=== PATIENT | male | born 1960 | race Two or more races ===

== ENCOUNTER 2017-10-30 12:46 | Inpatient (IN) | payer OTHER ==
[2017-10-30] MEDS ORDERED: ONDANSETRON 4 MG/2 ML VIAL ONE (12:58)
--- NOTE | 2017-10-30 13:02 | PDOC ---
History of Present Illness - General Stated Complaint: SEIZURE Time Seen by Provider: 10/30/17 12:55 History Source: Patient Exam Limitations: No Limitations - History of Present Illness Initial Comments: 10/30/17 13:01 57m with pmh of HTN, CAD s/p SD, history of seizure 5 years ago, never place on antiseizure meds,now brought in by EMS with 3 seizures this morning, once with head trauma ongoing the first one when he fell out of bed, subsequently with post seizure vomitingx2. Patient was postictal but now returning to baseline, reports some generalized body aches and weakness over the last 1-2 days but no other specific complaints, denies any fevers or chills. Past History - Past Medical History Allergies/Adverse Reactions: Allergies Allergy/AdvReac Type Severity Reaction Status Date / Time No Known Allergies Allergy Verified 10/30/17 13:04 Home Medications: Ambulatory Orders Amlodipine Besylate [Norvasc -] 10 mg PO DAILY 10/30/17 Aspirin [ASA -] 81 mg PO DAILY 10/30/17 Atorvastatin Ca [Lipitor] 80 mg PO HS 10/30/17 Clopidogrel Bisulfate [Clopidogrel] 75 mg PO DAILY 10/30/17 Furosemide [Lasix -] 20 mg PO DAILY 10/30/17 Lisinopril 20 mg PO HS 10/30/17 Cardiac Disorders: Yes (mi) Diabetes: Yes HTN: Yes (non complient) - Suicide/Smoking/Psychosocial Hx Smoking History: Never smoked Hx Alcohol Use: No Drug/Substance Use Hx: No Substance Use Type: None Review of Systems - Review of Systems Able to Perform ROS?: No (Postictal) *Physical Exam - Physical Exam General Appearance: Yes: Nourished, Appropriately Dressed, Apparent Distress HEENT: positive: Other (right eye opaque, chronic) Respiratory/Chest: positive: Lungs Clear, Normal Breath Sounds. negative: Chest Tender Cardiovascular: positive: Regular Rhythm, Regular Rate, S1, S2 Gastrointestinal/Abdominal: positive: Normal Bowel Sounds, Flat, Soft. negative : Tender Neurologic: positive: Other (post ictal). negative: Fully Oriented ED Treatment Course - LABORATORY CBC & Chemistry Diagram: 10/30/17 13:25 10/30/17 13:25 - RADIOLOGY Radiology Studies Ordered: Category Date Time Status HEAD CT WITHOUT CONTRAST [CT] Stat CT Scan 10/30/17 12:58 Ordered Medical Decision Making - Medical Decision Making 10/30/17 14:35 EKG: Sinus rhythm with short WI. Possible left atrial enlargement. Possible inferior infarct. Head CT tu r/o bleed. basic labs. 1g of Keppra prophylactically 10/30/17 14:[address]: No definite CT evidence of acute intracranial pathology. Possible small chronic left cerebellar infarct. Mild bilateral periventricular and subcortical white matter hypodensity is noted which may be on the basis of microvascular ischemic gliosis versus nonspecific gliosis. 10/30/17 15:[address] Leblanc. *DC/Admit/Observation/Transfer Diagnosis at time of Disposition: Seizure - Discharge Dispostion Decision to Admit order: Yes - Referrals Referrals: Brown Lee MD [Primary Care Provider] - - Patient Instructions - Post Discharge Activity
[2017-10-30 13:47] LABS: BASO % 0.2 % (0-2.0); HEMOGLOBIN 14.4 GM/dL (11.7-16.9); LYMPH % 4.8 % (8-40); MCH 32.4 pg (25.7-33.7); MCHC 33.4 g/dl (32.0-35.9); MEAN CELL VOLUME 97.1 fl (80-96); MEAN PLT VOLUME 10.3 fl (7.5-11.1); MONO % 5.6 % (3.8-10.2); NEUT % 89.4 % (42.8-82.8); PLATELET COUNT 202 K/MM3 (134-434); RBC 4.43 M/mm3 (4.00-5.60); RDW 14.1 % (11.9-15.9); WHITE BLOOD COUNT 10.4 K/mm3 (4.0-10.0)
[2017-10-30 14:03] LABS: INR 1.04 (0.82-1.09); PROTHROMBIN TIME (PATIENT) 11.7 SEC (9.7-13.0)
[2017-10-30] MEDS ORDERED: levETIRAcetam 500 MG/5 ML INJECTION VIAL IVPB ONE ×2 (14:04→14:08)
[2017-10-30 14:06] LABS: ACTIVATED PTT 26.2 SECONDS (25.2-36.5)
--- NOTE | 2017-10-30 14:17 | PDOC ---
Attending Attestation - Resident Resident Name: Derick Singleton - ED Attending Attestation I have performed the following: I have examined & evaluated the patient, The case was reviewed & discussed with the resident, I agree w/resident's findings & plan - HPI HPI: 10/30/17 14:15 57-year-old male with history of hypertension, CAD, distant history of seizure on 1 or 2 prior occasions not maintained on antiepileptics presents now brought in by EMS with 3 seizures this morning, once with head trauma ongoing the first one when he fell out of bed, subsequently with post seizure vomiting. Patient was postictal but now returning to baseline, reports some generalized body aches and weakness over the last 1-2 days but no other specific complaints, denies any fevers or chills. - Physicial Exam PE: 10/30/17 14:15 Afebrile, vital signs are within normal limits Forehead bruising, head is otherwise atraumatic No C-spine tenderness, full range of motion Right eye opacified, left eye with reactive pupil and normal extraocular movements Heart and lungs are clear, abdomen is benign 5 out of 5 motor strength 4 extremities - Medical Decision Making 10/30/17 14:16 57-year-old male with history of seizures not maintained on antiepileptics presents with 3 seizures over the last 6 hours, one with head injury. Likely recurrence of his underlying seizure disorder, question exacerbating factors such as infection or metabolic disarray. Positive head injury on aspirin and Plavix, rule out TBI. Stat CT Labs, EKG Will load with Keppra Will need admission Heart Score/ECG Review #1 ECG reviewed & interpreted by me at: 13:46 General ECG Interpretation: Sinus Rhythm, Normal Rate (86), Normal Intervals ( qtc 457), No acute ischemic changes (TWI III/AVF)
[2017-10-30 14:21] LABS: ALBUMIN 3.3 g/dl (3.4-5.0); ANION GAP 17 (8-16); BILIRUBIN,TOTAL 0.4 mg/dL (0.2-1.0); BLOOD UREA NITROGEN 11 mg/dL (7-18); CALCIUM 8.6 mg/dL (8.5-10.1); CHLORIDE 102 mmol/L (98-107); CO2 18 mmol/L (21-32); CREATININE 1.2 mg/dL (0.7-1.3); SGPT/ALT 61 U/L (12-78); SODIUM 137 mmol/L (136-145); TOT PROT 6.7 g/dl (6.4-8.2)
[2017-10-30 14:24] LABS: ALK PHOS 104 U/L (45-117)
--- NOTE | 2017-10-30 14:58 | EKG ---
Test Reason : Blood Pressure : / mmHG Vent. Rate : 086 BPM Atrial Rate : 086 BPM P-R Int : 106 ms QRS Dur : 084 ms QT Int : 382 ms P-R-T Axes : 046 018 -25 degrees QTc Int : 457 ms SINUS RHYTHM WITH SHORT OH POSSIBLE LEFT ATRIAL ENLARGEMENT POSSIBLE INFERIOR INFARCT (CITED ON OR BEFORE 29-OCT-2013) ABNORMAL ECG WHEN COMPARED WITH ECG OF 16-MAR-2016 16:29, NO SIGNIFICANT CHANGE WAS FOUND Confirmed by Richard Spencer MD ([id number]) on 10/30/2017 2:57:37 PM Referred By: Confirmed By:Richard Spencer MD
[2017-10-30 15:10] LABS: POTASSIUM 4.6 mmol/L (3.5-5.1); SGOT/AST 32 U/L (15-37)
[2017-10-30 15:12] LABS: GLUCOSE,RANDOM 329 mg/dL (74-106)
[2017-10-30] MEDS ORDERED: SODIUM CHLORIDE 1,000 ML IV STA (15:18)
[2017-10-30] MEDS ORDERED: INSULIN REGULAR HUMAN 100 UNITS/ML *VIAL SQ ONE (16:00)
[2017-10-30] MEDS ORDERED: INSULIN REGULAR HUMAN 100 UNITS/ML *VIAL ONE (16:05)
[2017-10-30 19:01] VITALS: BMI 26.9
--- NOTE | 2017-10-30 19:40 | HP ---
Admitting History and Physical - Past Medical History Cardiovascular: Yes: HTN - Smoking History Smoking history: Never smoked Have you smoked in the past 12 months: No - Alcohol/Substance Use Hx Alcohol Use: No Home Medications - Allergies Allergies/Adverse Reactions: Allergies Allergy/AdvReac Type Severity Reaction Status Date / Time No Known Allergies Allergy Verified 10/30/17 13:04 - Home Medications Home Medications: Ambulatory Orders Amlodipine Besylate [Norvasc -] 10 mg PO DAILY 10/30/17 Aspirin [ASA -] 81 mg PO DAILY 10/30/17 Atorvastatin Ca [Lipitor] 80 mg PO HS 10/30/17 Clopidogrel Bisulfate [Clopidogrel] 75 mg PO DAILY 10/30/17 Furosemide [Lasix -] 20 mg PO DAILY 10/30/17 Lisinopril 20 mg PO HS 10/30/17 Physical Examination Vital Signs: Vital Signs Temperature 98.3 F 10/30/17 18:49 Pulse Rate 84 10/30/17 18:49 Respiratory Rate 20 10/30/17 18:49 Blood Pressure 138/85 10/30/17 18:49 O2 Sat by Pulse Oximetry (%) 95 10/30/17 18:49 Labs: CBC, BMP 10/30/17 13:25 10/30/17 13:25
[2017-10-31] MEDS ORDERED: SODIUM CHLORIDE 0.45% 1,000 ML IV SCH (01:15)
[2017-10-31] MEDS: INSULIN (NOVOLOG) ASPART 100 UNITS/ML 10ML VIAL SQ SCH ×4 (06:10→22:10)
[2017-10-31 08:10] LABS: BASO % 0.5 % (0-2.0); EOS % 2.2 % (0-4.5); HEMATOCRIT 38.6 % (35.4-49); HEMOGLOBIN 13.1 GM/dL (11.7-16.9); LYMPH % 26.2 % (8-40); MCH 32.7 pg (25.7-33.7); MEAN CELL VOLUME 96.2 fl (80-96); MEAN PLT VOLUME 10.3 fl (7.5-11.1); MONO % 9.7 % (3.8-10.2); NEUT % 61.4 % (42.8-82.8); PLATELET COUNT 164 K/MM3 (134-434); RBC 4.01 M/mm3 (4.00-5.60); RDW 14.1 % (11.9-15.9); WHITE BLOOD COUNT 5.7 K/mm3 (4.0-10.0)
[2017-10-31 08:20] LABS: ALK PHOS 75 U/L (45-117); ANION GAP 10 (8-16); BILIRUBIN,TOTAL 0.7 mg/dL (0.2-1.0); BLOOD UREA NITROGEN 11 mg/dL (7-18); CALCIUM 8.4 mg/dL (8.5-10.1); CHLORIDE 105 mmol/L (98-107); CO2 25 mmol/L (21-32); GLUCOSE,RANDOM 169 mg/dL (74-106); POTASSIUM 4.2 mmol/L (3.5-5.1); SGOT/AST 26 U/L (15-37); SGPT/ALT 49 U/L (12-78); SODIUM 140 mmol/L (136-145); TOT PROT 6.1 g/dl (6.4-8.2)
[2017-10-31] MEDS: FUROSEMIDE 20 MG TABLET (FP) PO SCH (10:47)
[2017-10-31] MEDS: CLOPIDOGREL BISULFATE 75 MG TABLET (FP) PO SCH (10:47)
[2017-10-31] MEDS: amLODIPine BESYLATE 10 MG TABLET (FP) PO SCH (10:47)
[2017-10-31] MEDS: ASPIRIN 81 MG CHEWABLE TABLETS PO SCH (10:47)
[2017-10-31] MEDS: levETIRAcetam 500 MG TABLET (FP) PO SCH ×2 (10:47→22:07)
--- NOTE | 2017-10-31 14:22 | ECHO ---
Name: DEBBIE LEIVA Exam:Adult Echocardiogram Study Date: 10/31/2017 08:26 AM Age: 57 yrs Reason For Study: HTN Height: 69 in Weight: 182 lb BSA: 2.0 m2 MMode/2D Measurements & Calculations IVSd: 0.82 cm Ao root diam: 3.3 cm LVIDd: 5.6 cm LA dimension: 3.7 cm LVIDs: 4.4 cm LVPWd: 0.84 cm EDV(Teich): 155.1 ml TAPSE: 0.72 cm ESV(Teich): 87.1 ml RV S Asaf: 10.8 cm/sec Doppler Measurements & Calculations MV E max asaf: 79.0 cm/sec MR max asaf: 367.6 cm/sec MV A max asaf: 17.3 cm/sec MR max P.3 mmHg MV E/A: 4.6 MV dec time: 0.11 sec TR max asaf: 221.7 cm/sec PI end-d asaf: 143.9 cm/sec TR max P.8 mmHg Med Peak E' Asaf: 7.9 cm/sec Med E/e': 10.0 Lat Peak E' Asaf: 4.8 cm/sec Lat E/e': 16.6 Procedure A two-dimensional transthoracic echocardiogram with color flow and Doppler was performed. Left Ventricle The left ventricle is grossly normal size. Left ventricular systolic function is moderately reduced. There is moderate global hypokinesis of the left ventricle. Right Ventricle The right ventricle is not well visualized. Atria Normal left and right atrial size and function. The atrial septum is aneurysmal. Mitral Valve There is mild mitral valve thickening. There is no mitral valve stenosis. There is moderate mitral regurgitation. Tricuspid Valve There is mild tricuspid valve thickening. There is no tricuspid stenosis. There is trace tricuspid regurgitation. Right ventricular systolic pressure is normal. Aortic Valve The aortic valve is not well visualized. No hemodynamically significant valvular aortic stenosis. Tra ce to mild aortic regurgitation. Pulmonic Valve The pulmonic valve is not well visualized. There is no pulmonic valvular stenosis. Trace pulmonic william vular regurgitation. Great Vessels The aortic root is normal size. Pericardium/Pleura There is no pericardial effusion. Interpretation Summary There is trace tricuspid regurgitation. Right ventricular systolic pressure is normal. Normal left and right atrial size and function. The atrial septum is aneurysmal. There is moderate mitral regurgitation. Trace to mild aortic regurgitation. The left ventricle is grossly normal size. Left ventricular systolic function is moderately reduced. There is moderate global hypokinesis of the left ventricle. MD Devyn Rivas 10/31/2017 02:21 PM
--- NOTE | 2017-10-31 15:37 | PN ---
Physical Exam: SUBJECTIVE: Patient seen and examined. divehi speaking only, nurse provided translation. pt denies hx of seizure disorder. denies ever being told he had a stroke in the past. admits to poor medication compliance due to insurance coverage. aware that he is diabetic OBJECTIVE: Vital Signs Period Temp Pulse Resp BP Sys/Yeager Pulse Ox Last 24 Hr 97.7 F-98.7 F 70-86 18-20 123-153/77-85 95-95 GENERAL: The patient is awake, alert, in no acute distress. EYES: right eye opacified due to childhood injury, extraocular movements intact , sclera anicteric, conjunctiva clear. No ptosis. ENT: moist mucous membranes. LUNGS: Breath sounds equal, clear to auscultation bilaterally, no wheezes, no crackles, no accessory muscle use. HEART: Regular rate and rhythm, S1, S2 without murmur, rub or gallop. ABDOMEN: Soft, nontender, nondistended, normoactive bowel sounds, no guarding, EXTREMITIES: 2+ dp and radial pulses, warm, well-perfused, no edema. Laboratory Results - last 24 hr 10/30/17 10/30/17 10/31/17 13:25 15:55 00:45 WBC RBC Hgb Hct MCV MCH MCHC RDW Plt Count MPV Absolute Neuts (auto) Neutrophils % Lymphocytes % Monocytes % Eosinophils % Basophils % Nucleated RBC % Sodium Potassium Chloride Carbon Dioxide Anion Gap BUN Creatinine Creat Clearance w eGFR POC Glucometer Random Glucose Hemoglobin A1c % Calcium Total Bilirubin AST ALT Alkaline Phosphatase Creatine Kinase 599 H 694 H Creatine Kinase Index Cancelled 0.3 0.2 CK-MB (CK-2) Cancelled 1.85 1.66 Troponin I 0.07 H D Total Protein Albumin TSH 10/31/17 10/31/17 10/31/17 06:09 07:00 07:00 WBC 5.7 RBC 4.01 Hgb 13.1 Hct 38.6 MCV 96.2 H MCH 32.7 MCHC 34.0 RDW 14.1 Plt Count 164 MPV 10.3 Absolute Neuts (auto) 3.5 Neutrophils % 61.4 D Lymphocytes % 26.2 D Monocytes % 9.7 Eosinophils % 2.2 D Basophils % 0.5 Nucleated RBC % 0 Sodium 140 Potassium 4.2 Chloride 105 Carbon Dioxide 25 D Anion Gap 10 BUN 11 Creatinine 1.0 Creat Clearance w eGFR > 60 POC Glucometer 163 Random Glucose 169 H D Hemoglobin A1c % Calcium 8.4 L Total Bilirubin 0.7 AST 26 ALT 49 Alkaline Phosphatase 75 D Creatine Kinase Creatine Kinase Index CK-MB (CK-2) Troponin I Total Protein 6.1 L Albumin 3.0 L TSH 0.73 10/31/17 10/31/17 07:00 13:12 WBC RBC Hgb Hct MCV MCH MCHC RDW Plt Count MPV Absolute Neuts (auto) Neutrophils % Lymphocytes % Monocytes % Eosinophils % Basophils % Nucleated RBC % Sodium Potassium Chloride Carbon Dioxide Anion Gap BUN Creatinine Creat Clearance w eGFR POC Glucometer 271 Random Glucose Hemoglobin A1c % 11.5 H D Calcium Total Bilirubin AST ALT Alkaline Phosphatase Creatine Kinase Creatine Kinase Index CK-MB (CK-2) Troponin I Total Protein Albumin TSH Active Medications Generic Name Dose Route Start Last Admin Trade Name Freq PRN Reason Stop Dose Admin Amlodipine Besylate 10 mg 10/31/17 10:00 10/31/17 10:47 Norvasc - PO 10 mg DAILY [facility] Administration Aspirin 81 mg 10/31/17 10:00 10/31/17 10:47 Asa - PO 81 mg DAILY [facility] Administration Atorvastatin Calcium 80 mg 10/31/17 22:00 Lipitor - PO HS [facility] Clopidogrel Bisulfate 75 mg 10/31/17 10:00 10/31/17 10:47 Plavix - PO 75 mg DAILY [facility] Administration Furosemide 20 mg 10/31/17 10:00 10/31/17 10:47 Lasix - PO 20 mg DAILY [facility] Administration Sodium Chloride 1,000 mls @ 75 mls/hr 10/31/17 01:15 10/31/17 02:15 1/2 Normal Saline IV 75 mls/hr ASDIR [facility]FFERSON Administration Insulin Aspart 0 units 10/31/17 07:00 10/31/17 13:14 Novolog Vial SQ 6 units ACHS [facility] Administration Protocol Levetiracetam 500 mg 10/31/17 10:00 10/31/17 10:47 Keppra - PO 500 mg BID [facility] Administration Lisinopril 20 mg 10/31/17 22:00 Prinivil PO HS [facility] ASSESSMENT/PLAN: 57 yr old man with uncontrolled DM, HTN, hx of CVA on CT imaging presents with new onset seizures at home admitted for further work-up. #Seizures - new onset, w.u pending - continue keppraa 500mg po bid - neuro consulted dr. Burkett - pt denies toxic habits, otc herbal medications, or any illness prior to seizure episodes. - head ct with possible small chronic left cerebellar infarct #uncontrolled DM - NISS, BGM ACHS while inpatient - will need medications added for better glucose control at time of dc - provided lifestyle modification counseling #HTN - lasix 20mg po daily - norvasc 10mg po daily - lisinopril 20mg op hs #continue home medication: plavix 75mg and ASA 81mg po daily, unclear why pt is on both, likely has CAD but recommend pt will need to discuss with PCP about continuing medications #Hyperlipidemia - continue home lipitor 80mg po hs #Diet; low sodium/dm diet #DVT: lovenox 40mg subq daily, encourage ambulation Visit type - Emergency Visit Emergency Visit: No - New Patient This patient is new to me today: Yes Date on this admission: 10/31/17 - Critical Care Critical Care patient: No - Discharge Referral Referred to [facility] No
--- NOTE | 2017-10-31 18:01 | PN ---
Teaching Attending Note Name of Resident: Aspen Bell ATTENDING PHYSICIAN STATEMENT I saw and evaluated the patient. I reviewed the resident's note and discussed the case with the resident. I agree with the resident's findings and plan as documented. SUBJECTIVE: Patient has no complaints. OBJECTIVE: Vital Signs Period Temp Pulse Resp BP Sys/Yeager Pulse Ox Last 24 Hr 97.7 F-98.7 F 70-86 18-20 123-153/77-85 95-95 HEART: S1S2, RRR LUNGS: Clear ABDOMEN: Soft, non-tender, non-distended, normal BS EXTREMITIES: No edema Laboratory Results - last 24 hr 10/31/17 10/31/17 10/31/17 00:45 06:09 07:00 WBC 5.7 RBC 4.01 Hgb 13.1 Hct 38.6 MCV 96.2 H MCH 32.7 MCHC 34.0 RDW 14.1 Plt Count 164 MPV 10.3 Absolute Neuts (auto) 3.5 Neutrophils % 61.4 D Lymphocytes % 26.2 D Monocytes % 9.7 Eosinophils % 2.2 D Basophils % 0.5 Nucleated RBC % 0 Sodium Potassium Chloride Carbon Dioxide Anion Gap BUN Creatinine Creat Clearance w eGFR POC Glucometer 163 Random Glucose Hemoglobin A1c % Calcium Total Bilirubin AST ALT Alkaline Phosphatase Creatine Kinase 694 H Creatine Kinase Index 0.2 CK-MB (CK-2) 1.66 Troponin I 0.07 H D Total Protein Albumin TSH 10/31/17 10/31/17 10/31/17 07:00 07:00 13:12 WBC RBC Hgb Hct MCV MCH MCHC RDW Plt Count MPV Absolute Neuts (auto) Neutrophils % Lymphocytes % Monocytes % Eosinophils % Basophils % Nucleated RBC % Sodium 140 Potassium 4.2 Chloride 105 Carbon Dioxide 25 D Anion Gap 10 BUN 11 Creatinine 1.0 Creat Clearance w eGFR > 60 POC Glucometer 271 Random Glucose 169 H D Hemoglobin A1c % 11.5 H D Calcium 8.4 L Total Bilirubin 0.7 AST 26 ALT 49 Alkaline Phosphatase 75 D Creatine Kinase Creatine Kinase Index CK-MB (CK-2) Troponin I Total Protein 6.1 L Albumin 3.0 L TSH 0.73 10/31/17 15:55 WBC RBC Hgb Hct MCV MCH MCHC RDW Plt Count MPV Absolute Neuts (auto) Neutrophils % Lymphocytes % Monocytes % Eosinophils % Basophils % Nucleated RBC % Sodium Potassium Chloride Carbon Dioxide Anion Gap BUN Creatinine Creat Clearance w eGFR POC Glucometer 138 Random Glucose Hemoglobin A1c % Calcium Total Bilirubin AST ALT Alkaline Phosphatase Creatine Kinase Creatine Kinase Index CK-MB (CK-2) Troponin I Total Protein Albumin TSH Current Medications Generic Name Dose Route Start Last Admin Trade Name Glen PRN Reason Stop Dose Admin Amlodipine Besylate 10 mg 10/31/17 10:00 10/31/17 10:47 Norvasc - PO 10 mg DAILY [facility] Administration Aspirin 81 mg 10/31/17 10:00 10/31/17 10:47 Asa - PO 81 mg DAILY [facility] Administration Atorvastatin Calcium 80 mg 10/31/17 22:00 Lipitor - PO HS [facility] Clopidogrel Bisulfate 75 mg 10/31/17 10:00 10/31/17 10:47 Plavix - PO 75 mg DAILY [facility] Administration Furosemide 20 mg 10/31/17 10:00 10/31/17 10:47 Lasix - PO 20 mg DAILY [facility] Administration Sodium Chloride 1,000 mls @ 75 mls/hr 10/31/17 01:15 10/31/17 02:15 1/2 Normal Saline IV 75 mls/hr ASDIR JEFFERSON Administration Insulin Aspart 0 units 10/31/17 07:00 10/31/17 16:29 Novolog Vial SQ Not Given ACHS [facility] Protocol Levetiracetam 500 mg 10/31/17 10:00 10/31/17 10:47 Keppra - PO 500 mg BID [facility] Administration Lisinopril 20 mg 10/31/17 22:00 Prinivil PO HS [facility] ASSESSMENT AND PLAN: 1. Seizure - Continue Keppra - Neurology eval 2. CAD, history of MS - Continue aspirin, Plavix, Lipitor 3. HTN - Continue Lisinopril, Norvasc, Lasix 4. Possible old left cerebellar infarct - Continue aspirin, Plavix, Lipitor 5. Type 2 DM, uncontrolled - HgbA1c 11.5 - Continue Novolog sliding scale - Diabetic education
--- NOTE | 2017-10-31 19:24 | CONSULT ---
Consult - text type - Consultation Consultation Note: NEUROLOGY CONSULTATION is greatly appreciated: This 57 yo RH single man lives with his brother. 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 PMH of HTN, DM, Chol but apparently not on meds. 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 H/O episodic headaches in the past. Currently quiescent. Denies prior seizures but admitted after 2 witnessed generalized seizures with LOC and shaking of all 4's on the day of admission and the day prior. No incontinence or tongue biting. In ER Glu> 360 mg %. Moderate increase in CK. WBC=10.4K CT of head (reviewed): mild atrophy. 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 DEANA: No bruits. Cor reg. enucleation OD. normal tongue. NEURO: Awake, alert. MS/speech: Normal CN II-XII: normal No drift or tremor. Normal strength. Absent AJ's. No FTN dystaxia Decreased vibration in toes. Romberg - Gait: Normal IMP: Non-focal exam. S/P head trauma and CVA (s). New onset seizure. SUGGEST: Continue levetiracetam 500 mg PO BID Repeat CK and WBC. Cont. Current Rx including plavix. Thank you very much, Andre Burkett MD
[2017-10-31 20:21] LABS: URINE APPEARANCE CLEAR; URINE BILIRUBIN NEGATIVE (<2.0 mg/dL); URINE COLOR LTYELLOW; URINE GLUCOSE (UA) 1+ (NEGATIVE); URINE KETONE NEGATIVE (NEGATIVE); URINE NITRITE NEGATIVE (NEGATIVE); URINE PROTEIN NEGATIVE (NEGATIVE); URINE UROBILINOGEN NEGATIVE mg/dL (0.2-1.0)
[2017-10-31 20:26] LABS: URINE LEUK ESTERASE 3+ (NEGATIVE)
[2017-10-31 20:34] LABS: EPI CELLS RARE /HPF (FEW); URINE MUCUS RARE
[2017-10-31] MEDS ORDERED: LISINOPRIL 20 MG TABLET (FP) PO SCH (22:00)
[2017-10-31] MEDS ORDERED: ATORVASTATIN CA 80 MG TABLET (FP) PO SCH (22:00)
[2017-11-01] MEDS: INSULIN (NOVOLOG) ASPART 100 UNITS/ML 10ML VIAL SQ SCH ×3 (06:03→16:19)
[2017-11-01 09:04] LABS: BASO % 0.9 % (0-2.0); EOS % 3.7 % (0-4.5); HEMATOCRIT 40.3 % (35.4-49); HEMOGLOBIN 13.7 GM/dL (11.7-16.9); LYMPH % 21.2 % (8-40); MCH 32.6 pg (25.7-33.7); MEAN CELL VOLUME 95.7 fl (80-96); MEAN PLT VOLUME 10.4 fl (7.5-11.1); MONO % 7.5 % (3.8-10.2); NEUT % 66.7 % (42.8-82.8); PLATELET COUNT 178 K/MM3 (134-434); RBC 4.21 M/mm3 (4.00-5.60); RDW 13.7 % (11.9-15.9); WHITE BLOOD COUNT 5.4 K/mm3 (4.0-10.0)
[2017-11-01] MEDS ORDERED: INSULIN (NOVOLOG) ASPART 100 UNITS/ML 10ML VIAL ONE (09:59)
[2017-11-01] MEDS ORDERED: ENOXAPARIN NA (PORCINE) 40 MG/0.4 ML DISP.SYRIN SQ SCH (10:00)
[2017-11-01] MEDS: amLODIPine BESYLATE 10 MG TABLET (FP) PO SCH (10:04)
[2017-11-01] MEDS: FUROSEMIDE 20 MG TABLET (FP) PO SCH (10:04)
[2017-11-01] MEDS: levETIRAcetam 500 MG TABLET (FP) PO SCH (10:04)
[2017-11-01] MEDS: ASPIRIN 81 MG CHEWABLE TABLETS PO SCH (10:04)
[2017-11-01] MEDS: CLOPIDOGREL BISULFATE 75 MG TABLET (FP) PO SCH (10:05)
--- NOTE | 2017-11-01 16:02 | PN ---
Teaching Attending Note Name of Resident: Aspen Bell ATTENDING PHYSICIAN STATEMENT I saw and evaluated the patient. I reviewed the resident's note and discussed the case with the resident. I agree with the resident's findings and plan as documented. SUBJECTIVE: Patient has no complaints. No further seizures. OBJECTIVE: Vital Signs Period Temp Pulse Resp BP Sys/Yeager Pulse Ox Last 24 Hr 98.0 F-98.7 F 66-88 20-20 126-143/60-87 94-94 HEART: S1S2, RRR LUNGS: Clear ABDOMEN: Soft, non-tender, non-distended, normal BS EXTREMITIES: No edema Laboratory Results - last 24 hr 10/31/17 10/31/17 10/31/17 13:16 15:55 22:09 WBC RBC Hgb Hct MCV MCH MCHC RDW Plt Count MPV Absolute Neuts (auto) Neutrophils % Lymphocytes % Monocytes % Eosinophils % Basophils % Nucleated RBC % POC Glucometer 138 218 Creatine Kinase Creatine Kinase Index CK-MB (CK-2) Troponin I Urine Color Ltyellow Urine Appearance Clear Urine pH 5.0 D Ur Specific [place] 1.013 Urine Protein Negative Urine Glucose (UA) 1+ H Urine Ketones Negative Urine Blood Negative Urine Nitrite Negative Urine Bilirubin Negative Urine Urobilinogen Negative Ur Leukocyte Esterase 3+ H Urine WBC (Auto) 9 Urine RBC (Auto) 3 Ur Epithelial Cells Rare Urine Mucus Rare 11/01/17 11/01/17 11/01/17 06:00 09:00 09:00 WBC 5.4 RBC 4.21 Hgb 13.7 Hct 40.3 MCV 95.7 MCH 32.6 MCHC 34.0 RDW 13.7 Plt Count 178 MPV 10.4 Absolute Neuts (auto) 3.6 Neutrophils % 66.7 Lymphocytes % 21.2 Monocytes % 7.5 Eosinophils % 3.7 Basophils % 0.9 Nucleated RBC % 0 POC Glucometer 173 Creatine Kinase 354 H Creatine Kinase Index 0.3 CK-MB (CK-2) 1.23 Troponin I 0.02 D Urine Color Urine Appearance Urine pH Ur Specific [place] Urine Protein Urine Glucose (UA) Urine Ketones Urine Blood Urine Nitrite Urine Bilirubin Urine Urobilinogen Ur Leukocyte Esterase Urine WBC (Auto) Urine RBC (Auto) Ur Epithelial Cells Urine Mucus 11/01/17 10:07 WBC RBC Hgb Hct MCV MCH MCHC RDW Plt Count MPV Absolute Neuts (auto) Neutrophils % Lymphocytes % Monocytes % Eosinophils % Basophils % Nucleated RBC % POC Glucometer 235 Creatine Kinase Creatine Kinase Index CK-MB (CK-2) Troponin I Urine Color Urine Appearance Urine pH Ur Specific [place] Urine Protein Urine Glucose (UA) Urine Ketones Urine Blood Urine Nitrite Urine Bilirubin Urine Urobilinogen Ur Leukocyte Esterase Urine WBC (Auto) Urine RBC (Auto) Ur Epithelial Cells Urine Mucus Current Medications Generic Name Dose Route Start Last Admin Trade Name Glen PRN Reason Stop Dose Admin Amlodipine Besylate 10 mg 10/31/17 10:00 11/01/17 10:04 Norvasc - PO 10 mg DAILY [facility] Administration Aspirin 81 mg 10/31/17 10:00 11/01/17 10:04 Asa - PO 81 mg DAILY JE[facility] Administration Atorvastatin Calcium 80 mg 10/31/17 22:00 10/31/17 22:07 Lipitor - PO 80 mg HS [facility] Administration Clopidogrel Bisulfate 75 mg 10/31/17 10:00 11/01/17 10:05 Plavix - PO 75 mg DAILY JE[facility] Administration Enoxaparin Sodium 40 mg 11/01/17 10:00 11/01/17 10:04 Lovenox - SQ 40 mg DAILY JE[facility] Administration Furosemide 20 mg 10/31/17 10:00 11/01/17 10:04 Lasix - PO 20 mg DAILY [facility] Administration Insulin Aspart 0 units 10/31/17 07:00 11/01/17 10:08 Novolog Vial SQ 4 units ACHS [facility]ERSON Administration Protocol Levetiracetam 500 mg 10/31/17 10:00 11/01/17 10:04 Keppra - PO 500 mg BID [facility] Administration Lisinopril 20 mg 10/31/17 22:00 10/31/17 22:07 Prinivil PO 20 mg HS JEFF[facility] Administration ASSESSMENT AND PLAN: 1. Seizure - Neurology consult appreciated - Discharge on Keppra 2. CAD, history of DC - Continue aspirin, Plavix, Lipitor 3. HTN - Continue Lisinopril, Norvasc, Lasix 4. Possible old left cerebellar infarct - Continue aspirin, Plavix, Lipitor 5. Type 2 DM, uncontrolled - HgbA1c 11.5 - Discharge on metformin - patient unlikely to be compliant with insulin
[2017-11-01 19:27] VITALS: BP 148/90; PULSE 78; TEMP 98.4
== END 2017-11-01 20:00 | disposition home or self-care (01) | DRG 53 ==
LOC: JER 12:46 → JERBED 15:57 → J6S 18:24
PROVIDERS: ADMIT Internal Medicine; ATTEND Internal Medicine
DX: R56.9 Unspecified convulsions (principal); I25.10 Atherosclerotic heart disease of native coronary artery without angina pectoris; E11.65 Type 2 diabetes mellitus with hyperglycemia; I10 Essential (primary) hypertension; E78.5 Hyperlipidemia, unspecified; I25.2 Old myocardial infarction
CPT/HCPCS: 36415; 70450-TC; 80053; 81003; 81015; 82550; 82553; 82962; 83036; 84443; 84484; 85025; 85610; 85730; 93005; 93010; 93306-TC; 93880-TC; 99285-25; J7030

== ENCOUNTER 2019-05-08 07:04 | Emergency (ER) | payer OTHER ==
[2019-05-08 07:32] VITALS: BMI 25.5
--- NOTE | 2019-05-08 08:03 | PDOC ---
History of Present Illness - General Chief Complaint: Lightheaded Stated Complaint: DIZZINESS History Source: Patient Exam Limitations: No Limitations - History of Present Illness Initial Comments: 05/08/19 08:10 58yM w PMHx seizure, CAD w hx IA, HTN, CVA (L cerebellar infarct, no chronic neuro deficits), T2DM presenting w weakness. Woke up at 5am this morning feeling dizzy trying to stand up from sitting position in bed that self- resolved after 4 minutes. Currently feels back at baseline. Denies LOC, head trauma. Last seizure couple of years ago, on keppra, med compliant. Denies fever , confusion, headache, nausea/vomiting, chest pain/SOB, urinary/bowel mvmt changes. Past History - Past Medical History Allergies/Adverse Reactions: Allergies Allergy/AdvReac Type Severity Reaction Status Date / Time No Known Allergies Allergy Verified 05/08/19 07:20 Home Medications: Ambulatory Orders Amlodipine Besylate [Norvasc -] 10 mg PO DAILY 10/30/17 Aspirin [ASA -] 81 mg PO DAILY 10/30/17 Atorvastatin Ca [Lipitor] 80 mg PO HS 10/30/17 Clopidogrel Bisulfate [Clopidogrel] 75 mg PO DAILY 10/30/17 Lisinopril 20 mg PO HS 10/30/17 levETIRAcetam [Keppra -] 500 mg PO BID #60 tablet 11/01/17 metFORMIN HCL [Metformin HCl ER] 500 mg PO DAILY #30 tab.er.24 11/01/17 Anemia: No Asthma: No Cancer: No Cardiac Disorders: Yes (mi) CVA: No COPD: No CHF: No Dementia: No Diabetes: Yes GI Disorders: No Disorders: No HTN: Yes (non complient) Hypercholesterolemia: No Liver Disease: No Seizures: Yes Thyroid Disease: No - Surgical History Abdominal Surgery: No Appendectomy: No Cardiac Surgery: No Cholecystectomy: No Lung Surgery: No Neurologic Surgery: No Orthopedic Surgery: No - Psycho Social/Smoking Cessation Hx Smoking History: Unknown if ever smoked Have you smoked in the past 12 months: No Hx Alcohol Use: No Drug/Substance Use Hx: No Substance Use Type: None Hx Substance Use Treatment: No Review of Systems - Review of Systems Constitutional: No: Chills, Fever HEENTM: No: Eye Pain, Nose Pain, Throat Pain Respiratory: No: Cough, Shortness of Breath Cardiac (ROS): No: Chest Pain, Palpitations ABD/GI: No: Abdominal Distended, Constipated, Diarrhea, Nausea, Vomiting : No: Burning, Dysuria Musculoskeletal: No: Back Pain, Joint Pain Integumentary: No: Bruising, Flushing Neurological: Yes: Weakness. No: Headache, Numbness Psychiatric: No: Anxiety, Depression Endocrine: No: Excessive Sweating, Intolerance to Cold, Intolerance to Heat Hematologic/Lymphatic: No: Anemia, Blood Clots *Physical Exam - Vital Signs Last Vital Signs Temp Pulse Resp BP Pulse Ox 97.7 F 88 18 164/91 99 05/08/19 07:20 05/08/19 07:20 05/08/19 07:20 05/08/19 07:20 05/08/19 07:20 - Physical Exam General Appearance: Yes: Nourished, Appropriately Dressed. No: Apparent Distress HEENT: positive: EOMI, ANDREA (R eye pupil not visualized), Normal Voice, Hearing Grossly Normal. negative: Scleral Icterus (R), Scleral Icterus (L), Rhinorrhea Respiratory/Chest: positive: Lungs Clear, Normal Breath Sounds. negative: Chest Tender, Respiratory Distress Cardiovascular: positive: Regular Rhythm, Regular Rate, S1, S2. 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 negative: Sensory Deficit, Confused, Disoriented ED Treatment Course - LABORATORY CBC & Chemistry Diagram: 05/08/19 09:00 05/08/19 08:30 Medical Decision Making - Medical Decision Making 05/08/19 08:32 EKG NSR, HR 77, QTc 411, TWI III, no other ST changes head CT no acute bleed/infarct/mass. L maxillary sinus disease 153/83 supine 144/93 standing --- 58yM w PMHx seizure, CAD w hx IA, HTN, CVA (L cerebellar infarct, no chronic neuro deficits), T2DM presenting w 4min generalized weakness this morning d/t dehydration vs posterior TIA Low concern for IA (no chest pain/SOB) vs seizure vs hypoglycemia (normal BG) vs orthostatic hypotension (<20 SBP drop) Given 1L NS Consulted Dr Burkett neuro - does not believe MRI brain would change medical management, consider outpatient carotid duplex, lipid studies, continue aspirin , BP control, statin DC w neuro referral Discharge - Discharge Information Problems reviewed: Yes Clinical Impression/Diagnosis: Dehydration Condition: Improved Disposition: HOME - Admission No - Follow up/Referral Referrals: Yanira Fuller [Primary Care Provider] - Joo Nichole MD [Staff Physician] - - Patient Discharge Instructions Patient Printed Discharge Instructions: DI for Dehydration -- Adult Additional Instructions: Drink lots of water. Follow up with the referred neurologist and your primary care doctor Come back to the ED if you have chest pain, trouble breathing, or lose consciousness. --- Beber roldan agua. Jim un seguimiento con el neurlogo referido y lizama mdico de atencin primaria. Regrese al servicio de urgencias si tiene dolor en el pecho, dificultad para respirar o prdida del conocimiento. Print Language: VIETNAMESE - Post Discharge Activity
[2019-05-08 09:20] LABS: BASO % 0.9 % (0-2.0); EOS % 2.4 % (0-4.5); HEMATOCRIT 41.5 % (35.4-49); HEMOGLOBIN 14.4 GM/dL (11.7-16.9); LYMPH % 23.8 % (8-40); MCH 30.9 pg (25.7-33.7); MCHC 34.7 g/dl (32.0-35.9); MEAN CELL VOLUME 88.9 fl (80-96); MEAN PLT VOLUME 8.8 fl (7.5-11.1); MONO % 7.3 % (3.8-10.2); NEUT % 65.6 % (42.8-82.8); PLATELET COUNT 229 K/MM3 (134-434); RBC 4.67 M/mm3 (4.00-5.60); RDW 12.9 % (11.9-15.9); WHITE BLOOD COUNT 5.1 K/mm3 (4.0-10.0)
[2019-05-08] MEDS ORDERED: SODIUM CHLORIDE 0.9% 500 ML INFUS.BAG IV ONE (09:40)
[2019-05-08 09:45] LABS: ALBUMIN 4.4 g/dl (3.4-5.0); BILIRUBIN,TOTAL 0.5 mg/dL (0.2-1); BLOOD UREA NITROGEN 14.7 mg/dL (7-18); CALCIUM 9.6 mg/dL (8.5-10.1); POTASSIUM 4.4 mmol/L (3.5-5.1); TOT PROT 8.6 g/dl (6.4-8.2)
[2019-05-08 14:24] VITALS: BP 158/76; PULSE 77; TEMP 98.1
--- NOTE | 2019-05-08 14:39 | EKG ---
Test Reason : Blood Pressure : / mmHG Vent. Rate : 077 BPM Atrial Rate : 077 BPM P-R Int : 110 ms QRS Dur : 082 ms QT Int : 364 ms P-R-T Axes : 049 014 010 degrees QTc Int : 411 ms SINUS RHYTHM WITH SHORT FL OTHERWISE NORMAL ECG WHEN COMPARED WITH ECG OF 30-OCT-2017 13:46, NO SIGNIFICANT CHANGE WAS FOUND Confirmed by ALLI SMITH MD ([id number]) on 05/08/2019 2:39:34 PM Referred By: Confirmed By:ALLI SMITH MD
--- NOTE | 2019-05-08 16:54 | PDOC ---
Documentation entered by Milton Edward SCRIBE, acting as scribe for Sheryl Wallace MD. Sheryl Wallace MD: This documentation has been prepared by the Wagner ledesma Nirvannie, SCRIBE, under my direction and personally reviewed by me in its entirety. I confirm that the documentation accurately reflects all work, treatment, procedures, and medical decision making performed by me. Attending Attestation - Resident Resident Name: BroderickMarc - ED Attending Attestation I have performed the following: I have examined & evaluated the patient, The case was reviewed & discussed with the resident, I agree w/resident's findings & plan, Exceptions are as noted - HPI HPI: 05/08/19 10:23 The patient is a 58 year old male, with a significant past medical history of seizures (on keppra), CAD (s/p NM), HTN, CVA and type 2 diabetes, who presents to the ED with dizziness for one day. Patient endorses feeling dizzy described as room spinning while trying to stand up from a sitting position at 5 am this morning and it lasted for 4 minutes. He denies any changes in urinary/bowel movements, SOB , changes in focal strength, or chest pain, palpitations. Allergies: NkDA Past surgical history: None reported. Social History: Nonsmoker. Denies EtOH use and recreational drug use. PCP: Dr. Fuller - Physicial Exam PE: 05/08/19 09:46 awake alert lungs clear bilat heart rrr no mrg abd soft nt nd ext wwp. nuero alert oriented x 3. finger to nose intact. gait normal. neg romberg. no drift. strength 5/5 neg chance hallpike. right eye with old clouded cornea . 05/08/19 10:11 - Medical Decision Making 05/08/19 10:11 58 yo M h/o prior CVA no residual deficits cad (prior NM) htn hld DM here with feeling of vertigo, dizziness after sitting up in bed this am. pt states he was getting out of bed, sitting on edge. felt dizzy did have a sense of motion or vertigo. denies n/v associatd. states he waited for a bit and it resolved. since then he has been abmulating fine. no palptiations or cp at time. no loc. no h/o similar in the past. no new weakness, or changes to his speech. on my exam pt currently with normal nuero exam. normal cerebellar exam differnetial orthosasis, dehydration, near syncope, tia. plan ct head, lab cxr ekg EKg unremakrable. TWI III, AVF, left axis. 05/08/19 16:53 ct head negative. 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 will dc home givein name for nuerology fu. Heart Score/ECG Review #1 ECG reviewed & interpreted by me at: 10:15 General ECG Interpretation: Sinus Rhythm, Normal Rate (77), Normal Intervals, No acute ischemic changes Compared to previous ECG there are: Other (TWI III, AVF)
== END 2019-05-08 13:38 | disposition home or self-care (01) ==
LOC: JER 07:04
DX: E86.0 Dehydration (principal); I25.10 Atherosclerotic heart disease of native coronary artery without angina pectoris; I10 Essential (primary) hypertension; I25.2 Old myocardial infarction; E11.9 Type 2 diabetes mellitus without complications; Z79.84 Long term (current) use of oral hypoglycemic drugs; G40.909 Epilepsy, unspecified, not intractable, without status epilepticus; Z86.73 Personal history of transient ischemic attack (TIA), and cerebral infarction without residual deficits; Z79.02 Long term (current) use of antithrombotics/antiplatelets; Z79.82 Long term (current) use of aspirin
CPT/HCPCS: 36415; 70450-TC; 80053; 80177; 85025; 93005; 93010; 99283-25